=== PATIENT | male | born 1965 | race Caucasian/White ===

== ENCOUNTER 2016-05-26 10:15 | Day surgery (SDC) | payer OTHER ==
[~2016-05-26] VITALS: Ht 177.8 cm; Wt 160.0 kg
[~2016-05-26 10:15] MED LIST: AMITRIPTYLINE H25 MG PO; ASPIR 8181 M1 PO; AZITHROMYCIN250 MG PO; BENICAR HCT 201 EACH; BENICAR40 MG PO; CHERATUSSIN AC473 ML PO; COLACE100 MG PO; DILAUDID2 MG PO; FLEXERIL10 MG PO; FUROSEMIDE20 MG; HYDROCODON-ACE1 EAC8; HYZAAR 100-21 TABLET PO; LASIX20 MG PO; LASIX40 MG PO; MIRALAX255 GM PO; MOTRIN600 MG PO; MOTRIN800 MG PO; NORCO 5/3251 TABLET PO; NORCO 7.5/321 TABLET PO; OXYCODONE HCL10 MG PO; OXYCODONE HCL15 MG PO; POTASSIUM CHLO10 ME4 PO; TESSALON PERLE100 MG PO; TIZANIDINE HCL4 MG PO; TORSEMIDE100 MG; TORSEMIDE20 MG PO; TRADJENTA5 MG PO; TYLENOL WITH C1 EACH PO; VICODIN 5-3001 EACH PO
[2016-05-26 10:55] LABS: POINT-OF-CARE METER ID UU14174212
[2016-05-26 11:06] VITALS: BP 151/73
[2016-05-26 14:50] LABS: POINT-OF-CARE METER ID UU13113675
[2016-05-26 15:24] VITALS: BP 104/53
[2016-05-26 16:25] VITALS: BP 115/55
[2016-05-26 17:58] VITALS: BP 130/67
== END 2016-05-26 18:05 | disposition home or self-care (01) ==
LOC: SDC 10:15
PROVIDERS: Orthopaedic Surgery
DX: S72.432A Displaced fracture of medial condyle of left femur, initial encounter for closed fracture (principal); S83.242A Other tear of medial meniscus, current injury, left knee, initial encounter; M94.262 Chondromalacia, left knee; M17.12 Unilateral primary osteoarthritis, left knee; M25.562 Pain in left knee; E66.01 Morbid (severe) obesity due to excess calories; Z68.43 Body mass index [BMI] 50.0-59.9, adult; G47.33 Obstructive sleep apnea (adult) (pediatric); Z79.01 Long term (current) use of anticoagulants; I10 Essential (primary) hypertension; E11.9 Type 2 diabetes mellitus without complications; F10.21 Alcohol dependence, in remission; Z82.49 Family history of ischemic heart disease and other diseases of the circulatory system; Z83.3 Family history of diabetes mellitus; Z82.61 Family history of arthritis; Z84.1 Family history of disorders of kidney and ureter
CPT/HCPCS: 73560; 76000; 82948; J0131; J0690; J1885; J2175; J2250; J2405; J2795; J3010

== ENCOUNTER 2016-09-09 13:39 | Emergency (ER) | payer OTHER ==
[~2016-09-09] VITALS: Ht 177.8 cm; Wt 151.8 kg
[2016-09-09 15:10] LABS: HEMATOCRIT 38.5 % (38.0-50.0); MCH 31.2 PG (29.0-34.0); MCHC 34.3 G/DL (30.0-36.0); MEAN PLAT.VOLUME 9.7 uM^3 (9.0-12.4); PLATELET COUNT 191 K/uL (156-360); RBC DIS.WIDTH-CV 13.2 % (11.8-14.6); RBC DIS.WIDTH-SD 43.8 % (39-53); RED BLOOD COUNT 4.23 M/uL (4.00-5.50); WHITE BLOOD COUNT 7.1 K/uL (4.1-10.2)
[2016-09-09 15:20] LABS: CHLORIDE 102 mEq/L (99-109); POTASSIUM 3.4 mEq/L (3.7-5.4); SODIUM 139 mEq/L (136-147)
[2016-09-09 15:21] LABS: GLUCOSE 146 mg/dL (70-99)
[2016-09-09 15:23] LABS: ANION GAP 10 MEQ/L (2-14)
[2016-09-09 15:25] LABS: GFR ESTIMATE (CALCULATED) > 59 mL/min/
[2016-09-09 15:26] LABS: UREA NITROGEN (BUN) 28 mg/dL (9-23)
[2016-09-09] MEDS ORDERED: ATHLETIC FOOT C30 GM TP (17:10)
[2016-09-09 17:19] VITALS: BP 111/53
== END 2016-09-09 17:19 | disposition home or self-care (01) ==
LOC: EME 13:39
DX: B35.3 Tinea pedis (principal); L89.899 Pressure ulcer of other site, unspecified stage; E11.9 Type 2 diabetes mellitus without complications; E87.6 Hypokalemia; Z79.84 Long term (current) use of oral hypoglycemic drugs; Z87.891 Personal history of nicotine dependence
CPT/HCPCS: 80048; 85027; 99281; 99284

== ENCOUNTER 2016-10-09 19:11 | Emergency (ER) | payer OTHER ==
[~2016-10-09 19:11] MED LIST changes: +ATHLETIC FOOT C30 GM TP
[2016-10-09] MEDS ORDERED: MOTRIN800 MG PO (21:39)
[2016-10-09 22:09] VITALS: BP 112/75
== END 2016-10-09 22:09 | disposition home or self-care (01) ==
LOC: EME 19:11
DX: S93.401A Sprain of unspecified ligament of right ankle, initial encounter (principal); X50.9XXA Other and unspecified overexertion or strenuous movements or postures, initial encounter; Y93.01 Activity, walking, marching and hiking; Y92.832 Beach as the place of occurrence of the external cause; I10 Essential (primary) hypertension; E11.9 Type 2 diabetes mellitus without complications
CPT/HCPCS: 73610; 99281; 99284

== ENCOUNTER 2017-04-17 15:55 | Emergency (ER) | payer OTHER ==
[~2017-04-17] VITALS: Ht 177.8 cm; Wt 159.0 kg
[2017-04-17] MEDS ORDERED: PREDNISONE20 MG PO (18:37)
[2017-04-17] MEDS ORDERED: TESSALON PERLE100 MG PO (18:37)
[2017-04-17] MEDS ORDERED: VENTOLIN HFA18 GM IH (18:37)
[2017-04-17 19:20] VITALS: BP 138/79
== END 2017-04-17 19:21 | disposition home or self-care (01) ==
LOC: EME 15:55
PROVIDERS: Emergency Medicine Emergency Medical Services
DX: J40 Bronchitis, not specified as acute or chronic (principal); Z87.891 Personal history of nicotine dependence; I10 Essential (primary) hypertension; K21.9 Gastro-esophageal reflux disease without esophagitis
CPT/HCPCS: 71046; 87502; 94640; 99281; 99284

== ENCOUNTER 2017-05-08 15:38 | Emergency (ER) | payer OTHER ==
[~2017-05-08] VITALS: Ht 177.8 cm; Wt 159.3 kg
[~2017-05-08 15:38] MED LIST changes: +PREDNISONE20 MG PO; +VENTOLIN HFA18 GM IH
[2017-05-08] MEDS ORDERED: VENTOLIN HFA18 GM IH (16:57)
[2017-05-08] MEDS ORDERED: TESSALON PERLE100 MG PO (16:57)
[2017-05-08 17:05] VITALS: BP 130/84
== END 2017-05-08 17:06 | disposition home or self-care (01) ==
LOC: EME 15:38
DX: S83.91XA Sprain of unspecified site of right knee, initial encounter (principal); M25.461 Effusion, right knee; R05 Cough; X50.9XXA Other and unspecified overexertion or strenuous movements or postures, initial encounter; Y93.01 Activity, walking, marching and hiking; E11.9 Type 2 diabetes mellitus without complications; I10 Essential (primary) hypertension; Z87.891 Personal history of nicotine dependence
CPT/HCPCS: 73564; 99281; 99283